=== PATIENT | female | born 1960 | race Caucasian/White ===

== ENCOUNTER 2022-11-20 10:44 | Outpatient (CLI) | payer BC ==
[~2022-11-20 10:44] MED LIST: BARIUM SULFATE 340 ML SUSP.RECON***PROCEDURE AREA ONLY**DONT ENTER PO ONE
== END 2022-11-20 23:59 | disposition home or self-care (01) ==
LOC: RAD 10:44
PROVIDERS: ATTEND Surgery
DX: K44.9 Diaphragmatic hernia without obstruction or gangrene (principal)
CPT/HCPCS: 74220

== ENCOUNTER → 2022-12-18 | Day surgery (SDC) | payer BC | END | disposition home or self-care (01) | LOC: RAD 08:54 | PROVIDERS: ATTEND Surgery | DX: K44.9 Diaphragmatic hernia without obstruction or gangrene (principal); D64.9 Anemia, unspecified; E78.5 Hyperlipidemia, unspecified; K21.9 Gastro-esophageal reflux disease without esophagitis; I10 Essential (primary) hypertension; F41.9 Anxiety disorder, unspecified; F32.A Depression, unspecified; G62.9 Polyneuropathy, unspecified; G25.81 Restless legs syndrome; Z79.899 Other long term (current) drug therapy; Z90.13 Acquired absence of bilateral breasts and nipples; Z98.890 Other specified postprocedural states; Z90.710 Acquired absence of both cervix and uterus; Z82.3 Family history of stroke; Z83.3 Family history of diabetes mellitus; Z82.49 Family history of ischemic heart disease and other diseases of the circulatory system | CPT/HCPCS: 78264; A9541 ==

== ENCOUNTER 2022-12-31 07:19 | Observation (INO) | payer BC ==
[2022-12-24 14:53] LABS: BASOPHILS % (AUTO) 0.8 % (0-1); EOSINOPHILS # (AUTO) 0.3 X10'3 (0-0.9); EOSINOPHILS % (AUTO) 4.5 % (0-6); LYMPHOCYTES # (AUTO) 2.2 X10'3 (1.1-4.8); LYMPHOCYTES % (AUTO) 37.4 % (21-51); MEAN CORPUSCULAR HEMOGLOBIN 32.3 PG (27.0-31.0); MEAN CORPUSCULAR HGB CONC 33.3 g/dL (33.0-36.5); MEAN PLATELET VOLUME 7.6 FL (7.4-10.4); MONOCYTES # (AUTO) 0.5 X10'3 (0-0.9); MONOCYTES % (AUTO) 8.6 % (2-12); NEUTROPHILS # (AUTO) 2.8 X10'3 (1.8-7.7); NEUTROPHILS % (AUTO) 48.7 % (42-75); PRE OP HEMATOCRIT 34.7 % (35.0-45.0); PRE OP HEMOGLOBIN 11.6 g/dL (12.0-16.0); PRE OP PLATELET COUNT 238 X10'3 (140-440); PRE OP WHITE BLOOD COUNT 5.8 10'3 (4.8-10.8); RED BLOOD COUNT 3.58 X10'6 (4.20-5.60); RED CELL DISTRIBUTION WIDTH 13.8 % (11.5-14.5)
[2022-12-24 15:02] LABS: ALBUMIN 3.7 G/DL (3.4-5.0); ALBUMIN/GLOBULIN RATIO 1.2 (1.1-1.5); ALKALINE PHOSPHATASE 90 IU/L (46-116); BLOOD UREA NITROGEN 16 MG/DL (7-18); BUN/CREATININE RATIO 19.5 (10.0-20.0); CALCIUM 8.8 MG/DL (8.5-10.1); CHLORIDE 104 MMOL/L (99-107); CREATININE 0.82 MG/DL (0.40-0.90); PRE OP ALT 35 U/L (30-65); PRE OP ANION GAP 10 (8-16); PRE OP AST 17 U/L (10-37); PRE OP BILIRUB, TOTAL 0.2 MG/DL (0.0-1.0); PRE OP GLUCOSE 116 MG/DL (70-104); PRE OP POTASSIUM 3.8 MMOL/L (3.4-5.1); PRE OP SODIUM 140 MMOL/L (135-145); TOTAL CARBON DIOXIDE 26.5 MMOL/L (24-32); TOTAL PROTEIN 6.7 G/DL (6.4-8.2); eGFR 71 ML/MIN
[2022-12-31] VITALS (29 sets, daily range): BP systolic 113–156; BP diastolic 54–85; PULSE 84–120; RESP 14–22; TEMP 96.7–98.6; O2SAT 91–100
[~2022-12-31] VITALS: Ht 165.1 cm; Wt 97.1 kg
[~2022-12-31 07:19] MED LIST changes: +ATOR40TA72 PO; +AZEL137S4 BOTHNARES; -BARIUM SULFATE 340 ML SUSP.RECON***PROCEDURE AREA ONLY**DONT ENTER PO ONE; +ENAL-79 PO; +FLUT1AER3 INH; +GABA-535; +ROPI0.2544; +TAMO20TA4 PO; +VENL150C58 PO; +cefazolin 2gm/D5W 100mL 100 ML IV ONE; +famotidine 20mg tablet PO ONE; +ringers solution, lacted 1,000 ML IV SCH
[2022-12-31] MEDS ORDERED: LIDOcaine 1% 30ml preserv. free vial ONE (09:05)
[2022-12-31] MEDS ORDERED: BUPIVAcaine/PF 2.5 mg/ml (0.25%) 30ml vial ONE (09:05)
[2022-12-31] MEDS ORDERED: sevoflurane 250ml liquid IH ONE (09:11)
[2022-12-31] MEDS ORDERED: dexamethasone sod phosphate 10mg/ml inj ONE (09:11)
[2022-12-31] MEDS ORDERED: fentaNYL/PF 50MCG/1 ML 2ML syringe ONE (09:19)
[2022-12-31] MEDS ORDERED: midazolam 1 mg/ML 2ml injection ONE (09:19)
[2022-12-31] MEDS ORDERED: LIDOcaine 2% (20mg/ml) 5ml vial ONE (09:29)
[2022-12-31] MEDS ORDERED: propofol inj 20 ML IV ONE (09:29)
[2022-12-31] MEDS ORDERED: ondansetron/PF 4mg/2ml inj ONE (09:30)
[2022-12-31] MEDS ORDERED: rocuronium 10mg/ml inj IV ONE ×2 (09:30)
[2022-12-31] MEDS ORDERED: labetalol 20mg/4ml (5mg/ml) syringe IV ONE (09:54)
[2022-12-31] MEDS ORDERED: ePHEDrine 50MG/ML INJ. ONE (10:14)
[2022-12-31] MEDS ORDERED: ondansetron/PF 4mg/2ml inj IV PRN ×2 (10:25→12:20)
[2022-12-31] MEDS ORDERED: ringers solution, lacted 1,000 ML IV SCH (10:25)
[2022-12-31] MEDS ORDERED: labetalol 20mg/4ml (5mg/ml) syringe IV PRN (10:25)
[2022-12-31] MEDS ORDERED: fentaNYL/PF 50MCG/1 ML 2ML syringe IV PRN ×2 (10:25)
[2022-12-31] MEDS ORDERED: HYDROmorphone/PF 0.2 MG/ML SYRINGE IV PRN ×2 (10:25)
[2022-12-31] MEDS ORDERED: hydrALAZINE 20mg/ml inj. IV PRN (10:25)
[2022-12-31] MEDS ORDERED: sugammadex 200mg/2ml injection IV ONE (11:14)
--- NOTE | 2022-12-31 12:07 | NUR ---
Received from OR via HOSPITAL BED, accompanied by Anesthesiologist DR GARCIA and report given by Anesthesiologist. PT IS GROGGY BUT RESPONDS TO VERBAL STIMULI AND FOLLOWS COMMANDS. PT IS IS IN SR WITH PVC'S. PT RECEIVING 8L 02 TO MASK AND TOLERATING WELL WITH O2 SAT >95%. WILL TITRATE DOWN PT TOLERATES. PT HAS 20G PIV TO RT HAND WITH LR INFUSING ORDERED. PT HAS 4 LAP SITE TO ABD THAT ARE ALL CDI AND DERMABOND INTACT. PT DENIES PAIN AT THIS TIME. WILL CONTINUE TO ASSESS
[2022-12-31] MEDS ORDERED: naloxone 0.4 mg/ml inj IV PRN (12:20)
[2022-12-31] MEDS: HYDROmorph/NS 0.2 mg/ml PCA 100 ML IV SCH ×6 (13:39→23:00)
--- NOTE | 2022-12-31 14:11 | NUR ---
PATIENT HAS MET ALL CRITERIA FOR TRANSFER TO THE ORTHO FLOOR. VSS. DRESSINGS INTACT. BED LOW, CALL LIGHT PRESENT AND 2 RAILS UP. RN PRESENT TO ACCEPT CARE OF PATIENT AND REPORT HAS BEEN CALLED TO NABEEL SÁNCHEZ. ALL QUESTIONS ANSWERED TO ACCEPTING RN.
[2022-12-31] MEDS: albuterol 2.5 MG/3 ML nebule NEB SCH ×2 (16:36→20:24)
--- NOTE | 2022-12-31 18:30 | NUR ---
Patient in room ORTHO 4021. I have received report from PRINCESS Valdez and had the opportunity to ask questions and assume patient care.
[2022-12-31] MEDS: budesonide 0.5mg/2ml UD nebule IH SCH (20:24)
[2022-12-31] MEDS: heparin, porcine 5000 units/ml vial SQ SCH (20:57)
[2022-12-31] MEDS ORDERED: gabapentin 400mg capsule PO SCH (21:00)
[2022-12-31] MEDS: normal saline 1000ml 1,000 ML IV SCH (22:20)
[2023-01-01] MEDS: HYDROmorph/NS 0.2 mg/ml PCA 100 ML IV SCH ×4 (01:00→07:00)
[2023-01-01 02:00] VITALS: BP 111/63; PULSE 90; RESP 14; TEMP 97.9; O2SAT 97
[2023-01-01] MEDS: albuterol 2.5 MG/3 ML nebule NEB SCH ×2 (03:00→07:33)
[2023-01-01] MEDS: normal saline 1000ml 1,000 ML IV SCH (03:15)
[2023-01-01 06:31] VITALS: BP 150/68; PULSE 87; RESP 18; TEMP 97.8; O2SAT 98
--- NOTE | 2023-01-01 06:45 | NUR ---
Problems reprioritized. Patient report given, questions answered & plan of care reviewed with PRINCESS Boswell.
[2023-01-01] MEDS: heparin, porcine 5000 units/ml vial SQ SCH (07:20)
[2023-01-01 07:25] VITALS: RESP 16; O2SAT 96
[2023-01-01] MEDS: budesonide 0.5mg/2ml UD nebule IH SCH (07:33)
[2023-01-01 07:35] VITALS: PULSE 92; RESP 16; O2SAT 96
[2023-01-01 07:43] VITALS: PULSE 101; RESP 18
[2023-01-01] MEDS ORDERED: ROPINIRole 0.25mg tablet PO SCH (08:00)
[2023-01-01] MEDS ORDERED: lisinopril 20mg tablet PO SCH (08:00)
[2023-01-01] MEDS ORDERED: tamoxifen 10mg tablet PO SCH (08:00)
[2023-01-01] MEDS ORDERED: venlafaxine XR 75mg capsule (Q24H) PO SCH (08:00)
[2023-01-01] MEDS ORDERED: azelastine Nasal Spray bottle NS SCH (08:00)
[2023-01-01] MEDS ORDERED: atorvastatin 20mg tablet PO SCH (08:00)
[2023-01-01 11:28] VITALS: BP 115/69; PULSE 103; RESP 16; TEMP 98; O2SAT 96
[2023-01-01] MEDS ORDERED: oxyCODONE/APAP 5-325mg tablet PO PRN (11:45)
[2023-01-01] MEDS ORDERED: PER5325T PO (11:47)
--- NOTE | 2023-01-01 12:02 | NUR ---
Nutrition consult: Per EMR pt s/p darleen fundoplication. Pt seen at bedside with SO present for written and verbal nutrition therapy education which includes diet progression and ONS coupons. Pt states she reviewed the material pre-op and reports having muscle milk at home to assist with meeting protein needs. Pt appears well prepared nutritionally. All questions were answered at this time. RD contact information provided and pt/SO encouraged to reach out if needed. RN notified of education being completed. Will continue to follow. Addendum: 01/01/23 at [address] Amended: Links added.
--- NOTE | 2023-01-01 12:47 | NUR ---
Patient alert and oriented in no apparent acute distress with no complaints. Discussed with patient discharge instructions and new prescription. Patient aware Dr. Bird's office called pain med to her pharmacy. Patient ready for dc but wanting to eat lunch first.
[2023-01-01] MEDS ORDERED: PCA WASTE DOCUMENTATION 1 MG ML MC SCH (13:20)
--- NOTE | 2023-01-01 13:26 | NUR ---
patient dc'd with all personal belongings escorted out in wheelchair by [facility] staff and spouse.
== END 2023-01-01 13:21 | disposition home or self-care (01) ==
LOC: PAS 07:19 → PAS IN 12:34 → ORTHO 4S 14:21
PROVIDERS: ADMIT Surgery; ATTEND Surgery
DX: K44.9 Diaphragmatic hernia without obstruction or gangrene (principal); E78.5 Hyperlipidemia, unspecified; K21.9 Gastro-esophageal reflux disease without esophagitis; I10 Essential (primary) hypertension; G25.81 Restless legs syndrome; E78.00 Pure hypercholesterolemia, unspecified; F41.8 Other specified anxiety disorders; Z90.710 Acquired absence of both cervix and uterus; Z79.899 Other long term (current) drug therapy
CPT/HCPCS: 36415; 43282; 71045; 80053; 82948; 85025; 94640; 94760; 96365; 96366; 96372; 96375; C1781; G0378; J0690; J1100; J1170; J1644; J2250; J2405; J2704; J3010; J3490; J7030; J7120; S2900; A4618

== ENCOUNTER 2023-09-25 18:17 | Emergency (ER) | payer BC ==
[~2023-09-25] VITALS: Ht 162.6 cm; Wt 95.5 kg
[~2023-09-25 18:17] MED LIST changes: +PER5325T PO; -cefazolin 2gm/D5W 100mL 100 ML IV ONE; -famotidine 20mg tablet PO ONE; -ringers solution, lacted 1,000 ML IV SCH
[2023-09-25] MEDS ORDERED: SULF1TAB48 PO (19:05)
[2023-09-25] MEDS: CefTRIAXone 1000mg IM Kit (w/lidocaine diluent) IM ONE (19:20)
[2023-09-25 19:30] VITALS: BP 146/77; PULSE 83; RESP 16; TEMP 98.1; O2SAT 98
== END 2023-09-25 19:38 | disposition home or self-care (01) ==
LOC: ER 18:18
DX: L03.113 Cellulitis of right upper limb (principal); Z88.5 Allergy status to narcotic agent; Z79.899 Other long term (current) drug therapy; Z79.2 Long term (current) use of antibiotics
CPT/HCPCS: 96372; 99283; J0696